=== PATIENT | female | born 1990 | race Caucasian/White ===

== ENCOUNTER 2019-07-30 06:15 | Inpatient (IN) | payer BC ==
[2019-08-04] MEDS ORDERED: Oxytocin/Lactated Ringers 10 UNIT/1,000 ML BAG IV SCH ×2 (09:00)
[2019-08-04] MEDS ORDERED: Nalbuphine 10 MG/1 ML Vial IVPUSH PRN (09:00)
[2019-08-04] MEDS ORDERED: Ondansetron 4 MG/2 ML SDV IVPUSH PRN ×2 (09:00→10:14)
[2019-08-04] MEDS ORDERED: Lactated Ringers 1,000 ML IV SCH (09:00)
[2019-08-04] MEDS ORDERED: Sodium Chloride 0.9% 10 ML Syringe FLUSH PRN (09:00)
[2019-08-04] MEDS ORDERED: fentaNYL/Bupivacaine/NS 2 MCG-0.125% 250 ML EPIDUR PRN (10:14)
[2019-08-04] MEDS ORDERED: ePHEDrine 50 MG/ML SDV IVPUSH PRN (10:14)
[2019-08-04] MEDS ORDERED: fentaNYL 100 MCG/2 ML SDV EPIDUR PRN (10:14)
[2019-08-04] MEDS ORDERED: Phenylephrine 1 MG in Sodium Chloride 0.9% 10 ML IV SCH (10:15)
--- NOTE | 2019-08-04 10:17 | PCM.PREANE ---
Preanesthetic Assessment - Anesthesia/Transfusion/Family Hx Anesthesia History: Prior Anesthesia Without Reaction Family History of Anesthesia Reaction: No Transfusion History: No Prior Transfusion(s) Intubation History: Unknown - Review of Systems General: No Symptoms (sore throat), Chills Pulmonary: No Symptoms Cardiovascular: No Symptoms Gastrointestinal: No Symptoms (GERD), Nausea Neurological: No Symptoms Other: Reports: None, Thyroid Problems (nodule on thyroid) - Physical Assessment NPO Status Date: 08/04/19 NPO Status Time: 21:00 Vital Signs: HR=89 Sat=99 OG=555/64 Resp=14 Temp=97.4 Height: 1.65 m Weight: 110.677 kg ASA Class: 2 Mental Status: Alert & Oriented x3 Airway Class: Mallampati = 2 Dentition: Reports: Normal Dentition, Caries Thyro-Mental Finger Breadths: 3 Mouth Opening Finger Breadths: 3 ROM/Head Extension: Full Lungs: Clear to Auscultation, Normal Respiratory Effort Cardiovascular: Regular Rate, Regular Rhythm, No Murmurs - Lab Values: Laboratory Last Values WBC 11.97 K/mm3 (3.98-10.04) H 08/04/19 09:15 RBC 3.98 M/mm3 (3.98-5.22) 08/04/19 09:15 Hgb 12.3 gm/dl (11.2-15.7) 08/04/19 09:15 Hct 37.4 % (34.1-44.9) 08/04/19 09:15 MCV 94.0 fl (79.4-94.8) D 08/04/19 09:15 MCH 30.9 pg (25.6-32.2) 08/04/19 09:15 MCHC 32.9 g/dl (32.2-35.5) 08/04/19 09:15 RDW Std Deviation 42.2 fL (36.4-46.3) 08/04/19 09:15 Plt Count 291 K/mm3 (182-369) 08/04/19 09:15 MPV 8.8 fl (9.4-12.3) L 08/04/19 09:15 Neut % (Auto) 77.0 % (34.0-71.1) H 08/04/19 09:15 Lymph % (Auto) 14.5 % (19.3-51.7) L 08/04/19 09:15 [place] % (Auto) 7.0 % (4.7-12.5) 08/04/19 09:15 Eos % (Auto) 0.6 (0.7-5.8) L 08/04/19 09:15 Baso % (Auto) 0.3 % (0.1-1.2) 08/04/19 09:15 Neut # (Auto) 9.23 K/mm3 (1.56-6.13) H 08/04/19 09:15 Lymph # (Auto) 1.73 K/mm3 (1.18-3.74) 08/04/19 09:15 [place] # (Auto) 0.84 K/mm3 (0.24-0.36) H 08/04/19 09:15 Eos # (Auto) 0.07 K/mm3 (0.04-0.36) 08/04/19 09:15 Baso # (Auto) 0.03 K/mm3 (0.01-0.08) 08/04/19 09:15 Above labs reviewed and noted and within acceptable ranges to proceed with epidural if desired. 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: Endocrine/Metabolic History: Reports: Other (See Below) Other Endocrine/Metabolic History: Growth on thyroid - HOME MEDS Home Medications: Home Meds PNV95/Ferrous Fumarate/FA [ Tablet] 1 each PO DAILY 08/04/19 [History] - CURRENT (IN HOUSE) MEDS Current Meds: Current Medications Fentanyl/Bupivacaine HCl (Fentanyl/Bupivacaine/Ns 2 Mcg-0.125% 250 Ml) ml EPIDUR CONTINUOUS PRN PRN Reason: Pain Lactated Ringer's (Ringers, Lactated) 1,000 mls @ 100 mls/hr IV ASDIRECTED ROSAMARIA Oxytocin/Lactated Ringer's (Pitocin In Lr 10 Units/1,000 Ml) 10 unit in 1,000 mls @ 12 mls/hr IV TITRATE ROSAMARIA; Protocol Oxytocin/Lactated Ringer's (Pitocin In Lr 10 Units/1,000 Ml) 10 unit in 1,000 mls @ 500 mls/hr IV .CONTINUOUS ROSAMARIA Nalbuphine HCl (Nubain) 10 mg IVPUSH Q2H PRN PRN Reason: Pain Ondansetron HCl (Zofran) 4 mg IVPUSH Q4H PRN PRN Reason: Nausea/Vomiting Sodium Chloride (Saline Flush) 10 ml FLUSH ASDIRECTED PRN PRN Reason: Keep Vein Open
--- NOTE | 2019-08-04 10:43 | PCM.LDHP ---
<Shon Teran - Last Filed: 08/05/19 08:40> L&D History of Present Illness - General Date of Service: 08/04/19 Admit Problem/Dx: Patient Status Order with Admit Dx/Problem 08/04/19 09:03 Patient Status [ADT] Routine Admission Diagnosis/Problem Admission Diagnosis/Problem 08/04/19 10:24 Kira is a 29-year-old 2 para 1001 female who is scheduled for admission on 08/04/2019 for an induction. CHRISS is 07/26/2019 placing the patient at 41 2/7 weeks gestational age upon admission. Source of Information: Patient History Limitations: Reports: No Limitations - History of Present Illness Introduction:: Introduction: Kira is a 29-year-old 2 para 1001 female at 41 2/7 weeks gestational age with an CHRISS of 07/26/2019 who is scheduled for admission on for an induction. The procedure, risks, and benefits of induction of labor were discussed with her in detail. 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 Follow up ultrasounds X2 are consistent with this date. This has been relatively unremarkable. She plans to breast feed. She declined genetic testing. Group B strep screen was negative. Her first medical appointment was . Early ultrasound was performed on 01/03/2019. During the course of she gained approximately 34 pounds. Her vital signs remained stable throughout the course and her fundal height growth was appropriate. Laboratory testing in shows blood type to be A+. First hemoglobin was 13.9g/dL. Platelets were 294,000. She is rubella nonimmune. Hepatitis B surface antigen, HIV assay, chlamydia, and gonorrhea were all negative. RPR was nonreactive. Second trimester labs showed hemoglobin at 12.1 g /dL and platelets at 283,000. 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: Endocrine/Metabolic History: Reports: Other (See Below) Other Endocrine/Metabolic History: Growth on thyroid Social & Family History - Family History Family Medical History: Noncontributory - Tobacco Use Smoking Status *Q: Former Smoker Used Tobacco, but Quit: Yes Month/Year Tobacco Last Used: 12/2018 - Recreational Drug Use Recreational Drug Use: No H&P Review of Systems - Review of Systems: Review Of Systems: See Below General: Reports: No Symptoms Pulmonary: Reports: No Symptoms Cardiovascular: Reports: No Symptoms Musculoskeletal: Reports: No Symptoms Skin: Reports: No Symptoms Psychiatric: Reports: No Symptoms L&D Exam - Exam Exam: See Below - Vital Signs Weight: 110.677 kg - Exam General: Alert, Oriented HEENT: Conjunctiva Clear, EOMI, Hearing Intact, Pupils Equal, Pupils Reactive Neck: Supple, Trachea Midline Lungs: Clear to Auscultation, Normal Respiratory Effort Cardiovascular: Regular Rate, Regular Rhythm, Systolic Murmur Back Exam: Normal Inspection, Full Range of Motion Extremities: Normal Inspection, Normal Range of Motion, Non-Tender, Normal Capillary Refill, Pedal Edema (+1 pitting edema on the left leg.) Skin: Warm, Dry, Intact - Patient Data Lab Results Last 24 hrs: Laboratory Results - last 24 hr 08/04/19 Range/Units 09:15 WBC 11.97 H (3.98-10.04) K/mm3 RBC 3.98 (3.98-5.22) M/mm3 Hgb 12.3 (11.2-15.7) gm/dl Hct 37.4 (34.1-44.9) % MCV 94.0 D (79.4-94.8) fl MCH 30.9 (25.6-32.2) pg MCHC 32.9 (32.2-35.5) g/dl RDW Std Deviation 42.2 (36.4-46.3) fL Plt Count 291 (182-369) K/mm3 MPV 8.8 L (9.4-12.3) fl Neut % (Auto) 77.0 H (34.0-71.1) % Lymph % (Auto) 14.5 L (19.3-51.7) % [place] % (Auto) 7.0 (4.7-12.5) % Eos % (Auto) 0.6 L (0.7-5.8) Baso % (Auto) 0.3 (0.1-1.2) % Neut # (Auto) 9.23 H (1.56-6.13) K/mm3 Lymph # (Auto) 1.73 (1.18-3.74) K/mm3 [place] # (Auto) 0.84 H (0.24-0.36) K/mm3 Eos # (Auto) 0.07 (0.04-0.36) K/mm3 Baso # (Auto) 0.03 (0.01-0.08) K/mm3 Result Diagrams: 08/04/19 09:15 Orders Last 24hrs: Active Orders 24 hr Category Date Time Status Patient Status [ADT] Routine ADT 08/04/19 09:03 Active Activity as Tolerated [RC] PFP Care 08/04/19 09:02 Active Communication Order [RC] ASDIRECTED Care 08/04/19 09:02 Active Heart Tones [RC] ASDIRECTED Care 08/04/19 09:03 Active Non Stress Test [RC] PER UNIT ROUTINE Care 08/04/19 09:02 Active Notify Provider [RC] ASDIRECTED Care 08/04/19 10:14 Active Notify Provider [RC] PFP Care 08/04/19 09:02 Active Notify Provider [RC] PRN Care 08/04/19 09:02 Active Oxygen Therapy [RC] ASDIRECTED Care 08/04/19 10:13 Active Peripheral IV Care [RC] . DIRECTED Care 08/04/19 09:03 Active Pulse Oximetry [RC] ASDIRECTED Care 08/04/19 10:14 Active Vital Signs [RC] PER UNIT ROUTINE Care 08/04/19 09:02 Active Regular Diet [DIET] Diet 08/04/19 Lunch Active BLOOD BANK HOLD SPECIMEN [BBK] Stat Lab 08/04/19 09:00 Ordered RAPID PLASMA REAGIN,RPR [CHEM] Routine Lab 10/26/19 09:15 Received Bupivicaine/fentaNYL/NS [fentaNYL/Bupivacaine/NS 2 MCG- Med 08/04/19 10:14 Pending 0.125% 250 ML] DOSE ml EPIDUR CONTINUOUS PRN Lactated Ringers [Ringers, Lactated] 1,000 ml Med 08/04/19 09:00 Active IV ASDIRECTED Nalbuphine [Nubain] Med 08/04/19 09:00 Active 10 mg IVPUSH Q2H PRN Ondansetron [Zofran] Med 08/04/19 10:14 Active 4 mg IVPUSH ONETIME PRN Ondansetron [Zofran] Med 08/04/19 09:00 Active 4 mg IVPUSH Q4H PRN Oxytocin/Lactated Ringers [Pitocin in LR 10 Units/1,000 Med 08/04/19 09:00 Active ML] 10 unit in 1,000 ml IV .CONTINUOUS Oxytocin/Lactated Ringers [Pitocin in LR 10 Units/1,000 Med 08/04/19 09:00 Active ML] 10 unit in 1,000 ml IV TITRATE Phenylephrine [Greg-Synephrine] 1 mg Med 08/04/19 10:15 Active Sodium Chloride 0.9% [Normal Saline] 10 ml IV TITRATE Sodium Chloride 0.9% [Saline Flush] Med 08/04/19 09:00 Active 10 ml FLUSH ASDIRECTED PRN ePHEDrine [ePHEDrine sulfate] Med 08/04/19 10:14 Active 5 mg IVPUSH ASDIRECTED PRN fentaNYL [Sublimaze] Med 08/04/19 10:14 Active 100 mcg EPIDUR Q3H PRN Electronic Heart Tones Ext w TOCO [WOMSER] Oth 08/04/19 09:02 Ordered Routine Electronic Heart Tones Internal [WOMSER] Per Unit Oth 08/04/19 09:02 Ordered Routine Peripheral IV Insertion Adult [OM.PC] Routine Oth 08/04/19 09:02 Ordered Resuscitation Status Routine Resus Stat 08/04/19 09:00 Ordered Medication Orders Ephedrine Sulfate (Ephedrine Sulfate) 5 mg IVPUSH ASDIRECTED PRN PRN Reason: Hypotension Fentanyl (Sublimaze) 100 mcg EPIDUR Q3H PRN PRN Reason: Pain Fentanyl/Bupivacaine HCl (Fentanyl/Bupivacaine/Ns 2 Mcg-0.125% 250 Ml) ml EPIDUR CONTINUOUS PRN PRN Reason: Pain Lactated Ringer's (Ringers, Lactated) 1,000 mls @ 100 mls/hr IV ASDIRECTED ROSAMARIA Oxytocin/Lactated Ringer's (Pitocin In Lr 10 Units/1,000 Ml) 10 unit in 1,000 mls @ 12 mls/hr IV TITRATE ROSAMARIA; Protocol Oxytocin/Lactated Ringer's (Pitocin In Lr 10 Units/1,000 Ml) 10 unit in 1,000 mls @ 500 mls/hr IV .CONTINUOUS ROSAMARIA Phenylephrine HCl 1 mg/ Sodium (Chloride) 10.1 mls @ 1 mls/sec IV TITRATE ROSAMARIA; Protocol Nalbuphine HCl (Nubain) 10 mg IVPUSH Q2H PRN PRN Reason: Pain Ondansetron HCl (Zofran) 4 mg IVPUSH Q4H PRN PRN Reason: Nausea/Vomiting Ondansetron HCl (Zofran) 4 mg IVPUSH ONETIME PRN PRN Reason: Nausea/Vomiting Sodium Chloride (Saline Flush) 10 ml FLUSH ASDIRECTED PRN PRN Reason: Keep Vein Open Assessment/Plan Comment:: Assessment: 1. 41 2/7 weeks gestation; No significant history, takes vitamin. 2. Group B Strep negative. 3. Plans on breast feeding. 4. RPR nonreactive. 5. Rubella nonimmune. 6. Declined Tdap, influenza vaccination, and MMR. Plan: 1. Induction- AROM. 2. Anticipate normal spontaneous vaginal delivery. 3. CBC and RPR. 4. Routine labor care. <Luis Arriola F - Last Filed: 08/05/19 13:26> L&D History of Present Illness - General Admit Problem/Dx: Patient Status Order with Admit Dx/Problem 08/04/19 09:03 Patient Status [ADT] Routine Admission Diagnosis/Problem Admission Diagnosis/Problem H&P Review of Systems - Review of Systems: Review Of Systems: See Below L&D Exam - Exam Exam: See Below - Vital Signs Vital Signs: Last Vital Signs Temp 36.3 C 08/04/19 09:02 Pulse Resp 14 08/04/19 09:02 BP 122/84 08/04/19 09:02 Pulse Ox 100 08/04/19 09:02 - Patient Data Lab Results Last 24 hrs: Laboratory Results - last 24 hr 08/04/19 Range/Units 09:15 WBC 11.97 H (3.98-10.04) K/mm3 RBC 3.98 (3.98-5.22) M/mm3 Hgb 12.3 (11.2-15.7) gm/dl Hct 37.4 (34.1-44.9) % MCV 94.0 D (79.4-94.8) fl MCH 30.9 (25.6-32.2) pg MCHC 32.9 (32.2-35.5) g/dl RDW Std Deviation 42.2 (36.4-46.3) fL Plt Count 291 (182-369) K/mm3 MPV 8.8 L (9.4-12.3) fl Neut % (Auto) 77.0 H (34.0-71.1) % Lymph % (Auto) 14.5 L (19.3-51.7) % [place] % (Auto) 7.0 (4.7-12.5) % Eos % (Auto) 0.6 L (0.7-5.8) Baso % (Auto) 0.3 (0.1-1.2) % Neut # (Auto) 9.23 H (1.56-6.13) K/mm3 Lymph # (Auto) 1.73 (1.18-3.74) K/mm3 [place] # (Auto) 0.84 H (0.24-0.36) K/mm3 Eos # (Auto) 0.07 (0.04-0.36) K/mm3 Baso # (Auto) 0.03 (0.01-0.08) K/mm3 Result Diagrams: 08/04/19 09:15 Problem List Initiated/Reviewed/Updated: Yes Orders Last 24hrs: Active Orders 24 hr Category Date Time Status Patient Status [ADT] Routine ADT 08/04/19 09:03 Active Activity as Tolerated [RC] PFP Care 08/04/19 09:02 Active Communication Order [RC] ASDIRECTED Care 08/04/19 09:02 Active Heart Tones [RC] ASDIRECTED Care 08/04/19 09:03 Active Non Stress Test [RC] PER UNIT ROUTINE Care 08/04/19 09:02 Active Notify Provider [RC] ASDIRECTED Care 08/04/19 10:14 Active Notify Provider [RC] PFP Care 08/04/19 09:02 Active Notify Provider [RC] PRN Care 08/04/19 09:02 Active Oxygen Therapy [RC] ASDIRECTED Care 08/04/19 10:13 Active Peripheral IV Care [RC] . DIRECTED Care 08/04/19 09:03 Active Pulse Oximetry [RC] ASDIRECTED Care 08/04/19 10:14 Active Vital Signs [RC] PER UNIT ROUTINE Care 08/04/19 09:02 Active Regular Diet [DIET] Diet 08/04/19 Lunch Active BLOOD BANK HOLD SPECIMEN [BBK] Stat Lab 08/04/19 09:00 Ordered RAPID PLASMA REAGIN,RPR [CHEM] Routine Lab 08/04/19 09:15 Received Bupivicaine/fentaNYL/NS [fentaNYL/Bupivacaine/NS 2 MCG- Med 08/04/19 10:14 Active 0.125% 250 ML] 250 ml EPIDUR CONTINUOUS PRN Lactated Ringers [Ringers, Lactated] 1,000 ml Med 08/04/19 09:00 Active IV ASDIRECTED Nalbuphine [Nubain] Med 08/04/19 09:00 Active 10 mg IVPUSH Q2H PRN Ondansetron [Zofran] Med 08/04/19 10:14 Active 4 mg IVPUSH ONETIME PRN Ondansetron [Zofran] Med 08/04/19 09:00 Active 4 mg IVPUSH Q4H PRN Oxytocin/Lactated Ringers [Pitocin in LR 10 Units/1,000 Med 08/04/19 09:00 Active ML] 10 unit in 1,000 ml IV .CONTINUOUS Oxytocin/Lactated Ringers [Pitocin in LR 10 Units/1,000 Med 08/04/19 09:00 Active ML] 10 unit in 1,000 ml IV TITRATE Phenylephrine [Greg-Synephrine] 1 mg Med 08/04/19 10:15 Active Sodium Chloride 0.9% [Normal Saline] 10 ml IV TITRATE Sodium Chloride 0.9% [Saline Flush] Med 08/04/19 09:00 Active 10 ml FLUSH ASDIRECTED PRN ePHEDrine [ePHEDrine sulfate] Med 08/04/19 10:14 Active 5 mg IVPUSH ASDIRECTED PRN fentaNYL [Sublimaze] Med 08/04/19 10:14 Active 100 mcg EPIDUR Q3H PRN Electronic Heart Tones Ext w TOCO [WOMSER] Ot 08/04/19 09:02 Ordered Routine Electronic Heart Tones Internal [WOMSER] Per Unit Ot 08/04/19 09:02 Ordered Routine Peripheral IV Insertion Adult [OM.PC] Routine Oth 08/04/19 09:02 Ordered Resuscitation Status Routine Resus Stat 08/04/19 09:00 Ordered Medication Orders Ephedrine Sulfate (Ephedrine Sulfate) 5 mg IVPUSH ASDIRECTED PRN PRN Reason: Hypotension Fentanyl (Sublimaze) 100 mcg EPIDUR Q3H PRN PRN Reason: Pain Fentanyl/Bupivacaine HCl (Fentanyl/Bupivacaine/Ns 2 Mcg-0.125% 250 Ml) 250 ml EPIDUR CONTINUOUS PRN PRN Reason: Pain Lactated Ringer's (Ringers, Lactated) 1,000 mls @ 100 mls/hr IV ASDIRECTED ROSAMARIA Oxytocin/Lactated Ringer's (Pitocin In Lr 10 Units/1,000 Ml) 10 unit in 1,000 mls @ 12 mls/hr IV TITRATE ROSAMARIA; Protocol Oxytocin/Lactated Ringer's (Pitocin In Lr 10 Units/1,000 Ml) 10 unit in 1,000 mls @ 500 mls/hr IV .CONTINUOUS ROSAMARIA Phenylephrine HCl 1 mg/ Sodium (Chloride) 10.1 mls @ 1 mls/sec IV TITRATE ROSAMARIA; Protocol Nalbuphine HCl (Nubain) 10 mg IVPUSH Q2H PRN PRN Reason: Pain Ondansetron HCl (Zofran) 4 mg IVPUSH Q4H PRN PRN Reason: Nausea/Vomiting Ondansetron HCl (Zofran) 4 mg IVPUSH ONETIME PRN PRN Reason: Nausea/Vomiting Sodium Chloride (Saline Flush) 10 ml FLUSH ASDIRECTED PRN PRN Reason: Keep Vein Open Assessment/Plan Comment:: I have reviewed and agree with the student's H and P.
--- NOTE | 2019-08-04 13:20 | PCM.SN ---
- Free Text/Narrative Note: Kira is 29-year-old 2 now para 2002 female who is at 41-2/7 weeks gestational age upon admission on 08/04/2019 for adequate induction of labor. Procedure, risks, benefits, limitations, follow-up and turned of care including line for natural os of labor discussed with patient. She appears understand and wish to proceed. Patient underwent artificial rupture membranes and adduction of labor. She progressed in labor and relatively rapidly went to complete cervical dilation by approximately 1230 hrs. on 08/04/2019. Push and patient delivered a viable, rand, male with Apgars of 8/9 , a length of , and a weight of in a a direct occiput anterior position. Shoulders delivered without problems and baby was placed on mom's abdomen. Pitocin was started at 500 mL per hour per IV to facilitate increase in uterine tone and decrease likelihood of bleeding. Cord was allowed to pulsate until it essentially ceased at which time as clamped 2 and cut by the baby's father. Cord blood was obtained. The umbilical cord had 3 vessels. The patient had no vaginal or perineal lacerations. The placenta delivered in a [place] presentation, appeared intact and complete and was discarded per patient desire. Patient was returned to supine position and was in good condition. She plans to breast-feed. Estimated blood loss was approximately 100 mL.
[2019-08-04] MEDS ORDERED: Benzocaine/Menthol 20%-0.5% Spray 56 GM Canister TOP PRN (13:41)
[2019-08-04] MEDS ORDERED: Docusate Sodium 100 MG Cap PO PRN (13:41)
[2019-08-04] MEDS ORDERED: Witch Hazel Medicated Pads 40/Jar TOP PRN (13:41)
[2019-08-04] MEDS ORDERED: Acetaminophen 325 MG Tab PO PRN (13:41)
[2019-08-04] MEDS ORDERED: Ibuprofen 600 MG Tab PO PRN (13:41)
--- NOTE | 2019-08-05 09:09 | PCM.DCSUM1 ---
Discharge Summary - Hospital Course Free Text/Narrative:: Kira is 29-year-old 2 now para 2002 female who is at 41-2/7 weeks gestational age upon admission on 08/04/2019 for adequate induction of labor. Procedure, risks, benefits, limitations, follow-up and turned of care including line for natural os of labor discussed with patient. She appears understand and wish to proceed. Patient underwent artificial rupture membranes and adduction of labor. She progressed in labor and relatively rapidly went to complete cervical dilation by approximately 1230 hrs. on 08/04/2019. Push and patient delivered a viable, rand, male infant with Apgars of 8/9 , a length of 21 inches, and a weight of 3430 gms in a a direct occiput anterior position. Shoulders delivered without problems and baby was placed on mom's abdomen. Pitocin was started at 500 mL per hour per IV to facilitate increase in uterine tone and decrease likelihood of bleeding. Cord was allowed to pulsate until it essentially ceased at which time as clamped 2 and cut by the baby's father. Cord blood was obtained. The umbilical cord had 3 vessels. The patient had no vaginal or perineal lacerations. The placenta delivered in a [place] presentation, appeared intact and complete and was discarded per patient desire. Patient was returned to supine position and was in good condition. Estimated blood loss was approximately 100 mL. patient is done well. She is nursing without problems. She has minimal lochia, was voiding well and was ambulating without concerns. She is desiring discharge home. Diagnosis: Stroke: No - Discharge Data Discharge Date: 08/05/19 Discharge Disposition: Home, Self-Care 01 Condition: Good - Referral to Home Health Primary Care Physician: Luis Arriola MD - Patient Instructions Diet: Regular Diet as Tolerated (Nursing diet with increase calories calcium as recommended) Activity: As Tolerated (No intercourse or tampons until bleeding resolves) Driving: May Drive Today Showering/Bathing: May Shower (May take a bath) Notify Provider of: Fever, Increased Pain, Swelling and Redness, Nausea and/or Vomiting - Discharge Plan Home Medications: Home Meds PNV95/Ferrous Fumarate/FA [ Tablet] 1 each PO DAILY 08/04/19 [History] Acetaminophen [Tylenol] 650 mg PO Q4H PRN tablet 08/05/19 [Rx] Ibuprofen [Motrin] 600 mg PO Q4H PRN tablet 08/05/19 [Rx] Referrals: Luis Arriola MD [Primary Care Provider] - (Return to [facility]. [facility]riola or Estrella Borjass2 weeks.) - Discharge Summary/Plan Comment DC Time >30 min.: No Discharge Summary/Plan Comment: Discharge instructions: 1. Discharge home 2. Diet, activity and follow-up discussed with patient. Recommend nursing diet with increased calories and calcium. 3. Precautions given concern increased pain, bleeding, temperature, signs/ symptoms of DVT/PE. 4. Medications per home medication was printed, discussed with and given to the patient. 5. Return to clinic-Dr. Arriola or Estrella [facility]on[facility]- [place] in 2 weeks. Diagnosis: Term -delivered Condition: Good - Patient Data Vitals - Most Recent: Last Vital Signs Temp 36.7 C 08/05/19 04:06 Pulse 57 L 08/05/19 04:06 Resp 16 08/05/19 04:06 BP 123/58 L 08/05/19 04:06 Pulse Ox 95 08/05/19 04:06 Weight - Most Recent: 110.677 kg Lab Results - Last 24 hrs: Laboratory Results - last 24 hr 08/04/19 08/04/19 Range/Units 09:15 09:15 WBC 11.97 H (3.98-10.04) K/mm3 RBC 3.98 (3.98-5.22) M/mm3 Hgb 12.3 (11.2-15.7) gm/dl Hct 37.4 (34.1-44.9) % MCV 94.0 D (79.4-94.8) fl MCH 30.9 (25.6-32.2) pg MCHC 32.9 (32.2-35.5) g/dl RDW Std Deviation 42.2 (36.4-46.3) fL Plt Count 291 (182-369) K/mm3 MPV 8.8 L (9.4-12.3) fl Neut % (Auto) 77.0 H (34.0-71.1) % Lymph % (Auto) 14.5 L (19.3-51.7) % [place] % (Auto) 7.0 (4.7-12.5) % Eos % (Auto) 0.6 L (0.7-5.8) Baso % (Auto) 0.3 (0.1-1.2) % Neut # (Auto) 9.23 H (1.56-6.13) K/mm3 Lymph # (Auto) 1.73 (1.18-3.74) K/mm3 [place] # (Auto) 0.84 H (0.24-0.36) K/mm3 Eos # (Auto) 0.07 (0.04-0.36) K/mm3 Baso # (Auto) 0.03 (0.01-0.08) K/mm3 RPR Non-reactive (NONREACTIVE) Med Orders - Current: Current Medications Acetaminophen (Tylenol) 650 mg PO Q4H PRN PRN Reason: mild pain or fever Benzocaine/Menthol (Dermoplast Pain Relief [place]) 0 gm TOP ASDIRECTED PRN PRN Reason: Perineal Comfort Measure Docusate Sodium (Colace) 100 mg PO BID PRN PRN Reason: Constipation Ibuprofen (Motrin) 600 mg PO Q4H PRN PRN Reason: Mild pain or fever Witch Chanel (Tucks) 1 pad TOP ASDIRECTED PRN PRN Reason: Pain Discontinued Medications Ephedrine Sulfate (Ephedrine Sulfate) 5 mg IVPUSH ASDIRECTED PRN PRN Reason: Hypotension Fentanyl (Sublimaze) 100 mcg EPIDUR Q3H PRN PRN Reason: Pain Fentanyl/Bupivacaine HCl (Fentanyl/Bupivacaine/Ns 2 Mcg-0.125% 250 Ml) 250 ml EPIDUR CONTINUOUS PRN PRN Reason: Pain Lactated Ringer's (Ringers, Lactated) 1,000 mls @ 100 mls/hr IV ASDIRECTED ROSAMARIA Oxytocin/Lactated Ringer's (Pitocin In Lr 10 Units/1,000 Ml) 10 unit in 1,000 mls @ 12 mls/hr IV TITRATE ROSAMARIA; Protocol Oxytocin/Lactated Ringer's (Pitocin In Lr 10 Units/1,000 Ml) 10 unit in 1,000 mls @ 500 mls/hr IV .CONTINUOUS ROSAMARIA Last Admin: 08/04/19 13:02 Dose: 500 mls/hr Phenylephrine HCl 1 mg/ Sodium (Chloride) 10.1 mls @ 1 mls/sec IV TITRATE ROSAMARIA; Protocol Nalbuphine HCl (Nubain) 10 mg IVPUSH Q2H PRN PRN Reason: Pain Ondansetron HCl (Zofran) 4 mg IVPUSH Q4H PRN PRN Reason: Nausea/Vomiting Ondansetron HCl (Zofran) 4 mg IVPUSH ONETIME PRN PRN Reason: Nausea/Vomiting Sodium Chloride (Saline Flush) 10 ml FLUSH ASDIRECTED PRN PRN Reason: Keep Vein Open
[2019-08-05 09:26] VITALS: BP 135/64; PULSE 60
== END 2019-08-05 14:28 | disposition home or self-care (01) | DRG 560 ==
LOC: JD.OB 08-04 08:54 → OBSVTOIN 08-04 13:01 → JD.OB 08-04 13:02
PROVIDERS: ADMIT Obstetrics & Gynecology; ATTEND Obstetrics & Gynecology
PROC: 10E0XZZ Delivery of Products of Conception, External Approach (ICD-10-PCS; principal; 2019-08-04)
PROC: 10907ZC Drainage of Amniotic Fluid, Therapeutic from Products of Conception, Via Natural or Artificial Opening (ICD-10-PCS; 2019-08-04)
DX: O48.0 Post-term pregnancy (principal); Z79.899 Other long term (current) drug therapy; Z3A.41 41 weeks gestation of pregnancy; Z37.0 Single live birth; Z91.018 Allergy to other foods; Z87.891 Personal history of nicotine dependence
CPT/HCPCS: 36415; 59025; 59409; 85025; 86592; J2590